=== PATIENT | female | born 1955 | race Caucasian/White ===

== ENCOUNTER 2018-09-15 08:40 | Outpatient (CLI) | payer MEDICARE | END 2018-09-15 23:59 | disposition home or self-care (01) | LOC: CFH 08:40 | PROVIDERS: ATTEND Surgery | DX: C50.412 Malignant neoplasm of upper-outer quadrant of left female breast (principal) | CPT/HCPCS: 19281; J3490 ==

== ENCOUNTER 2018-09-18 07:47 | Day surgery (SDC) | payer MEDICARE ==
[~2018-09-18] VITALS: Ht 180.3 cm; Wt 128.0 kg
[2018-09-18 08:59] VITALS: BP 165/83
== END 2018-09-18 12:45 | disposition home or self-care (01) ==
LOC: OUT 07:47 → EDSTATUS 11:00 → OUT 12:45
PROVIDERS: ATTEND Surgery
DX: C50.412 Malignant neoplasm of upper-outer quadrant of left female breast (principal); I10 Essential (primary) hypertension; G47.33 Obstructive sleep apnea (adult) (pediatric); E03.9 Hypothyroidism, unspecified; E66.9 Obesity, unspecified; Z17.1 Estrogen receptor negative status [ER-]; Z68.38 Body mass index [BMI] 38.0-38.9, adult; Z79.890 Hormone replacement therapy; Z79.899 Other long term (current) drug therapy; Z72.89 Other problems related to lifestyle; Z87.891 Personal history of nicotine dependence; Z88.0 Allergy status to penicillin; Z88.8 Allergy status to other drugs, medicaments and biological substances; Z91.040 Latex allergy status; Z90.710 Acquired absence of both cervix and uterus; Z98.890 Other specified postprocedural states; Z82.49 Family history of ischemic heart disease and other diseases of the circulatory system; Z80.1 Family history of malignant neoplasm of trachea, bronchus and lung
CPT/HCPCS: 19301; 38525; 38792; 76098; 88307; 88341; 88342; 93005; A9541; C9898; J1100; J2250; J2405; J2704; J3010

== ENCOUNTER 2018-10-12 07:53 | Outpatient (CLI) | payer MEDICARE ==
[~2018-10-12 07:53] MED LIST: ESCI20TA10 PO; LEVO100T5 PO; NEBI10TA3 PO
== END 2018-10-12 23:59 | disposition home or self-care (01) ==
LOC: ROC 07:53
PROVIDERS: ATTEND Radiology Radiation Oncology
DX: C50.412 Malignant neoplasm of upper-outer quadrant of left female breast (principal); I10 Essential (primary) hypertension; E78.5 Hyperlipidemia, unspecified; E03.9 Hypothyroidism, unspecified; F17.210 Nicotine dependence, cigarettes, uncomplicated; Z90.710 Acquired absence of both cervix and uterus; Z98.890 Other specified postprocedural states; Z88.0 Allergy status to penicillin; Z88.1 Allergy status to other antibiotic agents; Z88.5 Allergy status to narcotic agent; Z91.040 Latex allergy status
CPT/HCPCS: G0463

== ENCOUNTER → 2019-01-10 | Outpatient (CLI) | payer MEDICARE | END | disposition home or self-care (01) | LOC: ROC 08:26 | PROVIDERS: ATTEND Radiology Radiation Oncology | DX: C50.412 Malignant neoplasm of upper-outer quadrant of left female breast (principal); F12.10 Cannabis abuse, uncomplicated | CPT/HCPCS: 99212; G0463 ==

== ENCOUNTER 2019-03-15 07:04 | Outpatient (CLI) | payer MEDICARE | END 2019-03-15 23:59 | disposition home or self-care (01) | LOC: ROC 07:04 | PROVIDERS: ATTEND Radiology Radiation Oncology | DX: C50.412 Malignant neoplasm of upper-outer quadrant of left female breast (principal) | CPT/HCPCS: G0463 ==

== ENCOUNTER 2019-03-29 09:04 | Outpatient (CLI) | payer MEDICARE | END 2019-03-29 23:59 | disposition home or self-care (01) | LOC: ROC 09:04 | PROVIDERS: ATTEND Radiology Radiation Oncology | DX: Z08 Encounter for follow-up examination after completed treatment for malignant neoplasm (principal); C50.412 Malignant neoplasm of upper-outer quadrant of left female breast; Z92.3 Personal history of irradiation | CPT/HCPCS: G0463 ==

== ENCOUNTER 2019-04-12 06:41 | Day surgery (SDC) | payer MEDICARE ==
[~2019-04-12] VITALS: Ht 177.8 cm; Wt 125.7 kg
[~2019-04-12 06:41] MED LIST changes: +ATOM25CA PO; +BUPIVACAINE/PF-EPI 0.5% 1:200K ONE; +VALG450T PO
[2019-04-12 07:14] VITALS: BP 159/108
[2019-04-12] MEDS ORDERED: LACTATED RINGERS 1,000 ML IV SCH (07:16)
[2019-04-12 07:25] VITALS: BP 145/85
[2019-04-12] MEDS ORDERED: FENTANYL PF 250 MCG/5ML ONE (07:31)
[2019-04-12] MEDS ORDERED: MIDAZOLAM 1 MG/ML, 2ML ONE (07:31)
[2019-04-12] MEDS ORDERED: DEXAMETHASONE 4 MG/ML, 1ML ONE (07:33)
[2019-04-12] MEDS ORDERED: ONDANSETRON 2MG/ML, 2ML ONE (07:33)
[2019-04-12] MEDS ORDERED: PROPOFOL 10 MG/ML, 20ML ONE (07:33)
[2019-04-12] MEDS ORDERED: PROMETHAZINE 25 MG/ML, 1ML IV PRN (08:30)
[2019-04-12] MEDS ORDERED: HALOPERIDOL 5 MG/ML IV PRN (08:30)
[2019-04-12] MEDS ORDERED: FENTANYL PF 100 MCG/2ML IV PRN (08:30)
[2019-04-12] MEDS ORDERED: hydrALAzine 20 MG/ML, 1ML IV PRN (08:30)
[2019-04-12] MEDS ORDERED: MEPERIDINE/PF 25MG/ML,1ML IVPush PRN (08:30)
[2019-04-12] MEDS ORDERED: MORPHINE SULFATE 4 MG/ML, 1ML IVPush PRN (08:30)
[2019-04-12] MEDS ORDERED: OXYcodone 5 MG/5 ML ORAL.SOL UDC PO PRN (08:30)
[2019-04-12] MEDS ORDERED: LABETALOL 5MG/ML, 20ML IV PRN (08:30)
[2019-04-12] MEDS ORDERED: HYDROmorphone 1 MG/ML, 1ML INJ IVPush PRN (08:30)
[2019-04-12] MEDS ORDERED: ACETAMINOPHEN 325 MG TABLET PO PRN (08:30)
[2019-04-12] MEDS ORDERED: GLYCOPYRROLATE 0.2MG/1ML, 5ML ONE (08:35)
[2019-04-12] MEDS ORDERED: PHENYLEPHRINE 10 MG/ML ONE (08:35)
[2019-04-12] MEDS ORDERED: BUPIVACAINE/PF-EPI 0.5% 1:200K INFIL ONE (08:47)
== END 2019-04-12 11:20 | disposition home or self-care (01) ==
LOC: OUT 06:41 → EDSTATUS 08:30 → OUT 11:20
PROVIDERS: ATTEND Surgery
DX: L76.82 Other postprocedural complications of skin and subcutaneous tissue (principal); R22.2 Localized swelling, mass and lump, trunk; I10 Essential (primary) hypertension; E03.9 Hypothyroidism, unspecified; F32.9 Major depressive disorder, single episode, unspecified; E66.9 Obesity, unspecified; Z68.39 Body mass index [BMI] 39.0-39.9, adult; Z79.890 Hormone replacement therapy; Z79.899 Other long term (current) drug therapy; Z87.891 Personal history of nicotine dependence; Z88.0 Allergy status to penicillin; Z88.5 Allergy status to narcotic agent; Z88.1 Allergy status to other antibiotic agents; Z88.8 Allergy status to other drugs, medicaments and biological substances; Z85.3 Personal history of malignant neoplasm of breast; Z90.710 Acquired absence of both cervix and uterus; Z98.890 Other specified postprocedural states
CPT/HCPCS: 11403; 88305; 88312; 93005; J1100; J2250; J2370; J2405; J2704; J3010; J7120

== ENCOUNTER → 2019-09-05 | Outpatient (CLI) | payer MEDICARE ==
[~2019-09-05] MED LIST changes: -BUPIVACAINE/PF-EPI 0.5% 1:200K ONE
== END | disposition home or self-care (01) ==
LOC: ROC 07:42
PROVIDERS: ATTEND Radiology Radiation Oncology
DX: Z09 Encounter for follow-up examination after completed treatment for conditions other than malignant neoplasm (principal); Z85.3 Personal history of malignant neoplasm of breast; Z79.899 Other long term (current) drug therapy
CPT/HCPCS: G0463